=== PATIENT | male | born 1955 | race Caucasian/White ===

== ENCOUNTER 2021-03-04 12:33 | Emergency (ER) | payer MEDICARE, MEDICAID, SELFPAY ==
[2021-03-04 12:49] VITALS: BP 174/83; PULSE 71; RESP 15; TEMP 36.4; O2SAT 100; BMI 22.9
--- NOTE | 2021-03-04 12:52 | DI.RAD.S_ITS ---
PROCEDURE: XR FOOT RT MIN 3V INDICATIONS: foot pain after he heard a snap TECHNIQUE: 3 views of the foot were acquired. COMPARISON: None. FINDINGS: Bones: Focal lucency is seen involving the lateral cortex of the 5th metatarsal. This lucency demonstrates potentially corticated margins. Age-appropriate bony degenerative changes are seen. Incidental note is made of an accessory ossicle, an os trigonum. Soft tissues: No tibiotalar joint effusion. Achilles tendon appears normal. IMPRESSION: Likely minimally displaced fracture of the proximal 5th metatarsal. However, differential diagnosis includes a nutrient foramen. Please correlate with focal tenderness at this site. If it would be helpful for clinical management decision making in this patient with this given history, please consider a dedicated foot CT for further evaluation. Dictated by: Dario Bundy M.D. on 03/04/2021 at 12:06 Approved by: Dario Bundy M.D. on 03/04/2021 at 12:08
--- NOTE | 2021-03-04 15:44 | ED.LOWEXIN ---
HPI - Extremity Injury (Lower) General Chief Complaint: Extremity Injury, Lower Stated Complaint: Left foot injury x5 days Time Seen by Provider: 03/04/21 15:38 Source: patient Mode of arrival: Ambulatory History of Present Illness HPI Narrative: Patient is 65-year-old healthy male who presents with right foot and knee pain. He says that his knee has been unstable for some time he thinks he injured at all his foot last week compensating for his knee. However try 4 days ago he felt a snap it brought him to his knees he had intense severe pain in his right foot. He has been unable to weight bear ever since he even bottom cell some crutches at [employer]. He knee also remains a concern Related Data Previous Rx's Medication Instructions Recorded hydrocodone 5 mg-acetaminophen 325 1 tab PO Q6H PRN #10 tab 03/04/21 mg tablet Allergies Allergy/AdvReac Type Severity Reaction Status Date / Time Penicillins Allergy Verified 03/04/21 12:49 Review of Systems Review of Systems Narrative: GENERAL: Denies chills,fever HEENT: Denies throat pain RESPIRATORY: Denies dyspnea, cough, wheezing CARDIOVASCULAR: Denies chest pain, palpitations GASTROINTESTINAL: Denies nausea, vomiting MUSCULOSKELETAL: See HPI SKIN: No rash, no laceration, no pruritus NEUROLOGIC: Denies weakness, dizziness, headache, numbness 8 point review of systems is negative except for those stated above and HPI Patient History Social History Smoking Status: Unknown if ever smoked Smoking Status: Unknown if ever smoked alcohol intake frequency: holidays/special occasions only Substance Use Type: does not use Exam Initial Vital Signs Initial Vital Signs: Vital Signs Temperature 97.5 F L 03/04/21 12:49 Pulse Rate 71 03/04/21 12:49 Respiratory Rate 15 03/04/21 12:49 Blood Pressure 174/83 H 03/04/21 12:49 Pulse Oximetry 100 03/04/21 12:49 GENERAL: Well-appearing, well-nourished and in no acute distress. CARDIOVASCULAR: peripheral pulses in tact, cap refill <2 sec RESPIRATORY: No respiratory distress, speaks in full sentences without difficulty EXTREMITIES: Normal range of motion, no clubbing or edema. Neurovascularly intact Right lower extremity: Knee is stable no swelling is tender foot is metatarsal contusion a pulse intact NEUROLOGICAL: Cranial nerves II through XII grossly intact. Normal gait and speech. SKIN: Warm, dry, no petechiae, no rashes or lesions. Procedures Orthopedic Splinting/Casting Injury #1: Lower Extremity Immobilizer: posterior splint and knee immobilizer Other Orthopedic Equipment: crutches Post splinting neuro exam: intact Post splinting vascular exam: intact Placed by: Nursing Course Orders Ordered: ED Orders 03/04/21 12:52 XR foot RT min 3V Stat Vital Signs Vital signs: Vital Signs - 8 hr 03/04/21 12:49 03/04/21 16:08 Temperature 97.5 F L Pulse Rate 71 65 Respiratory Rate 15 14 Blood Pressure 174/83 H 146/80 H Pulse Oximetry 100 100 MDM - Extremity Injury (Lower) Imaging Data Extremity x-ray #1: Radiologist's Impression: PROCEDURE:? XR FOOT RT MIN 3V ? INDICATIONS:? foot pain after he heard a snap ? TECHNIQUE:? 3 views of the foot were acquired.? ? COMPARISON:? None. ? FINDINGS:? ? Bones:? Focal lucency is seen involving the lateral cortex of the 5th metatarsal.? This lucency demonstrates potentially corticated margins. ? Age-appropriate bony degenerative changes are seen. Incidental note is made of an accessory ossicle, an os trigonum.? ? ? Soft tissues:? No tibiotalar joint effusion.? Achilles tendon appears normal.? ? ? IMPRESSION:? Likely minimally displaced fracture of the proximal 5th metatarsal.? However, differential diagnosis includes a nutrient foramen.? Please correlate with focal tenderness at this site. ? If it would be helpful for clinical management decision making in this patient with this given history, please consider a dedicated foot CT for further evaluation. ? ? Dictated by: Dario Bundy M.D. on 03/04/2021 at 12:06 ? ? Approved by: Dario Bundy M.D. on 03/04/2021 at 12:08 ? [facility] Narrative Medical decision making narrative: Patient is found to 5th metatarsal fracture. He is placed in a posterior slab not weight-bearing. His knee is still quite bothersome to him but that is chronic in on going he is given any immobilizer and instructions to follow-up with orthopedics. Discharge Plan Departure Patient Disposition: Home Clinical Impression: Fracture of 5th metatarsal, Knee sprain Instructions: DI for Foot Fracture, DI for Knee Sprain Activity Restrictions/Additional Instructions: *You have been diagnosed with right foot fracture and knee sprain *What to do: Use crutches, no weight-bearing. Please follow-up with orthopedics. Elevate, ice 20-30 minutes at a time *Continue to take medications as directed Simpson 1 tablet every 6 hours if needed for severe pain *Follow up with your primary care provider in 2-3 days or call [phone] *Return to ER if you should have increased pain weakness numbness tinglingor any new, worsening or concerning symptoms CONTROLLED SUBSTANCE DISCHARGE (Narcotoic/benzodiazepine/Flexeril/Phenergan) 1. You have been prescribed narcotic medications, it does have acetaminophen/Tylenol/paracetamol in it, DO NOT TAKE MORE THAN 4,00mg in 24 hours of Tylenol. TRAMADOL DOES NOT CONTAIN TYLENOL 2. Please understand that we cannot provide further refills of narcotics, benzodiazepines or controlled substances through the ED and her pain management will need to be through your provider. 3. While on these medications you cannot drive or operate heavy machinery. 4. You cannot sign legal documents or perform any duties such as this. 5. As long as you're taking opiate pain medications he should also be taking a stool softener such as Colace, Dulcolax, MiraLAX or prune juice, to help avoid constipation. Prescriptions: New hydrocodone-acetaminophen 5-325 mg tablet 1 tab PO Q6H PRN (Reason: pain) Qty: 10 0RF Referrals: [facility] [Provider Group] Jorge Hunt MD [Primary Care Provider] - Yaquelin Lee MD [Physician] -
[2021-03-04 16:08] VITALS: BP 146/80; PULSE 65; RESP 14; O2SAT 100
== END 2021-03-04 16:22 | disposition home or self-care (01) ==
PROVIDERS: Emergency Provider Emergency Medicine; PCP Family Medicine
DX: S92.351A Displaced fracture of fifth metatarsal bone, right foot, initial encounter for closed fracture (principal); S83.91XA Sprain of unspecified site of right knee, initial encounter; X58.XXXA Exposure to other specified factors, initial encounter
CPT/HCPCS: 73630; 99283

== ENCOUNTER → 2021-04-07 10:47 | Outpatient (CLI) | payer MEDICARE, MEDICAID, SELFPAY ==
--- NOTE | 2021-04-07 | DI.MRI.S_ITS ---
PROCEDURE: MR FOOT RT WO CON INDICATIONS: NONDISPLACED FRACTURE OF 5TH METATARSAL BONE TECHNIQUE: Noncontrast sagittal T1 spin echo and T2 fast spin echo with fat saturation, long-axis T1 spin echo and T2 fast spin echo with fat saturation, short-axis T1 spin echo and T2 fast spin echo with fat saturation through the forefoot. COMPARISON: [facility] [place], CR, XR FOOT 3 VIEWS WEIGHT BEARING RIGHT, 03/26/2021, 10:38. FINDINGS: Image quality: Excellent. Bones and joints: Minimal displaced fracture of the proximal 5th metatarsal with edema about the fracture site. The sesamoid bones appear in expected positions, without internal edema. Mild 1st metatarsophalangeal joint degeneration. No intraosseous lesions. Soft tissues: The visualized plantar foot muscles demonstrate normal signal and bulk. Visualized flexor and extensor tendons appear intact, without tenosynovitis. The distal insertions of the peroneal longus and brevis tendons appear intact. The principal Lisfranc ligament appears intact. Dorsal T2 hyperintense signal is seen, compatible with edema. Sagittal images demonstrate no evidence for plantar plate tears. IMPRESSION: 1. Minimal displaced fracture of the proximal 5th metatarsal with edema about the fracture site. 2. Dorsal soft tissue swelling. Dictated by: Reji Reyez M.D. on 04/07/2021 at 12:58 Approved by: Reji Reyez M.D. on 04/07/2021 at 13:03
== END ==
PROVIDERS: PCP Family Medicine; Referring Provider Orthopaedic Surgery Foot and Ankle Surgery; Visit Provider Orthopaedic Surgery Foot and Ankle Surgery
DX: S92.354A Nondisplaced fracture of fifth metatarsal bone, right foot, initial encounter for closed fracture (principal); M79.89 Other specified soft tissue disorders; X58.XXXA Exposure to other specified factors, initial encounter
CPT/HCPCS: 73718

== ENCOUNTER → 2021-07-09 11:01 | Outpatient (CLI) | payer MEDICARE, MEDICAID, SELFPAY ==
[2021-07-09 18:40] LABS: Alanine Aminotransferase 15 IU/L (<50); Albumin 4.7 g/dL (3.5-5.0); Albumin Globulin Ratio 1.5 (1.0-2.8); Alkaline Phosphatase 88 U/L (38-126); Aspartate Aminotransferase 28 IU/L (17-59); BUN Creatinine Ratio 21.8 (6-22); Bilirubin Total 0.5 mg/dL (0.2-1.3); Blood Urea Nitrogen 19 mg/dL (9-20); Calcium 9.2 mg/dL (8.4-10.2); Carbon Dioxide 31 mmol/L (22-32); Chloride 103 mmol/L (98-107); Estimated Glomerular Filt Rate > 60 mL/min (>60); Globulin 3.1 g/dL (1.7-4.1); Glucose 101 mg/dL (80-110); HEMOLYSIS < 15 (0-50); Potassium 4.4 mmol/L (3.4-5.1); Sodium 139 mmol/L (137-145); Total Protein 7.8 g/dL (6.3-8.2)
[2021-07-09 18:50] LABS: Add Manual Diff / Slide Review NO; Basophils Absolute Auto 100 /uL (0-100); Basophils Percent Auto 1.1 % (0-2); Eosinophils Absolute Auto 200 /uL (0-450); Eosinophils Percent Auto 3.1 % (2-4); Hematocrit 45.2 % (41-53); Hemoglobin 15.2 g/dL (13.5-17.5); Lymphocytes Absolute Auto 1100 /uL (1100-4500); Lymphocytes Percent Auto 22.1 % (25-40); Mean Corpuscular HGB Conc 33.6 % (30-36); Mean Corpuscular Hemoglobin 30.1 PG (26-34); Mean Corpuscular Volume 89.4 fL (80-100); Monocytes Absolute Auto 700 /uL (0-900); Monocytes Percent Auto 13.8 % (3-14); Neutrophils Absolute Auto 3100 /uL (1500-7000); Neutrophils Percent Auto 59.9 % (50-75); Platelet Count 242 X10^3/uL (150-400); Red Blood Cell Count 5.06 X10^6/uL (4.5-5.9); Red Cell Distribution Width 13.9 % (11.6-14.8); White Blood Cell Count 5.1 X10^3/uL (4.5-11.0)
[2021-07-09 19:10] LABS: Prostate Specific Antigen 1.38 ng/mL (0.10-4.00)
== END ==
PROVIDERS: PCP Family Medicine; Visit Provider Physician Assistant
DX: Z12.5 Encounter for screening for malignant neoplasm of prostate (principal); I10 Essential (primary) hypertension; S39.012A Strain of muscle, fascia and tendon of lower back, initial encounter
CPT/HCPCS: 80053; 84153; 85025

== ENCOUNTER → 2021-07-11 09:43 | Outpatient (CLI) | payer MEDICARE, MEDICAID, SELFPAY ==
[2021-07-11 18:33] LABS: Cholesterol 259 mg/dL (140-199); HDL Cholesterol 55 mg/dL (40-60); LDL Cholesterol Calculated 182 mg/dL (<100); Triglycerides 108 mg/dL (35-150)
== END ==
PROVIDERS: PCP Physician Assistant; Visit Provider Physician Assistant
DX: R03.0 Elevated blood-pressure reading, without diagnosis of hypertension (principal); E78.5 Hyperlipidemia, unspecified
CPT/HCPCS: 80061

== ENCOUNTER → 2022-03-30 11:50 | Outpatient (CLI) | payer MEDICARE, MEDICAID, SELFPAY ==
--- NOTE | 2022-03-30 | DI.RAD.S_ITS ---
PROCEDURE: [place] WRIST INJECTION MR/CT RT INDICATIONS: RIGHT WRIST STRAIN COMPARISON: None. TECHNIQUE: After informed consent had been obtained, the wrist was examined fluoroscopically, and a site chosen for injection of the radiocarpal compartment from a dorsal approach. Skin was prepped and draped in a sterile fashion and 1% lidocaine infiltrated from the skin down to the articular surface. A hypodermic needle was then introduced into the articular space and a modest amount of contrast medium was instilled confirming intra-articular needle tip placement. This was followed by approximately 4 mL of a dilute gadolinium solution. Needle was removed and dressing was applied. The patient experienced no complications throughout the procedure and left the fluoroscopic suite in no apparent distress. FINDINGS: A single fluoroscopic spot image demonstrates intra-articular location to injected iodinated contrast. IMPRESSION: Fluoroscopic-guided administration of dilute Gadolinium solution for wrist MR arthrogram. Dictated by: Oscar Elizabeth M.D. on 03/30/2022 at 14:18 Approved by: Oscar Elizabeth M.D. on 03/30/2022 at 14:19
--- NOTE | 2022-03-30 13:52 | DI.MRI.S_ITS ---
PROCEDURE: MR WRIST RT W CON INDICATIONS: RIGHT WRIST STRAIN TECHNIQUE: After the administration of 3-4 mL of dilute intra-articular Gadolinium contrast into the radiocarpal compartment, coronal T1 spin echo with fat saturation and T2 fast spin echo with fat saturation, axial T1 spin echo and T2 fast spin echo with fat saturation, sagittal T1 spin echo with and without fat saturation through the wrist. COMPARISON: [facility], CR, XR WRIST 3+ VIEWS RIGHT, 03/17/2022, 11:58. [facility], , [place] WRIST INJECTION MR/CT RT, 03/30/2022, 14:12. FINDINGS: Image quality: Images are mildly degraded by patient motion despite repeat sequences being acquired. Diagnostic information is obtained. Bones and cartilage: Cystic changes and mild edema are seen within the distal ulna and the adjacent portion of the triquetrum. There is joint space narrowing at the radiolunate articulation with subchondral cystic changes in the radius. Degenerative spurring is noted at the 1st carpometacarpal joint. The carpal bones are normally aligned. No evidence for avascular necrosis. Carpal ligaments: The scapholunate and lunotriquetral ligaments appear intact, without gadolinium extravasation into the mid-carpal compartment. On sagittal images, the pisohamate ligament appears intact. Triangular fibrocartilage complex: There is extravasation of radiocarpal contrast material into the distal radioulnar joint. The ulnar attachments of the triangular fibrocartilage are poorly visualized with heterogeneously hyperintense T1-weighted and T2-weighted signal in this region that is suspicious for full-thickness tearing. Tendons and soft tissues: The carpal tunnel structures appear normal, including the median nerve. The ulnar nerve appears normal within Guyon's canal. There is at least high-grade partial intrasubstance tearing of the extensor carpi ulnaris tendon at the level of the ulnar styloid. No tendon subluxation. A few attenuated tendon fibers may remain in continuity. The remaining extensor tendon compartments demonstrate normal morphology, without pathologic tendon sheath fluid. Lobular ganglion cyst at the volar aspect of the radiocarpal joint measures 10 x 2 x 3 mm and is most likely communicating. A ganglion cyst is seen along the volar aspect of the 3rd carpometacarpal joint measuring 4 mm in maximum dimension. Additional 3 mm ganglion cyst is seen dorsal to the 2nd carpometacarpal joint. IMPRESSION: 1. At least high-grade partial tearing of the extensor carpi ulnaris tendon at the level of the ulnar styloid. 2. Full-thickness tearing of the ulnar attachments of the triangular fibrocartilage with extravasation of radiocarpal contrast material into the distal radioulnar joint. 3. Cystic changes and mild edema within the ulnar styloid and the adjacent triquetrum may be the sequela of prior impaction injury versus chronic cystic changes and/or reactive edema. 4. Degenerative changes in the wrist are most prominent at the radiocarpal and 1st carpometacarpal joints. 5. A few small ganglion cysts are seen around the wrist. Approved by: Oscar Goins M.D. on 03/30/2022 at 16:07
== END ==
PROVIDERS: PCP Physician Assistant; Referring Provider Orthopaedic Surgery; Visit Provider Orthopaedic Surgery
DX: S63.591A Other specified sprain of right wrist, initial encounter (principal); S56.511A Strain of other extensor muscle, fascia and tendon at forearm level, right arm, initial encounter; M67.431 Ganglion, right wrist; X50.0XXA Overexertion from strenuous movement or load, initial encounter
CPT/HCPCS: 20605; 73222; 77002

== ENCOUNTER → 2023-05-20 13:36 | Outpatient (CLI) | payer MEDICARE, SELFPAY ==
[2023-05-20 19:43] LABS: Add Manual Diff / Slide Review NO; Basophils Absolute Auto 100 /uL (0-100); Basophils Percent Auto 1.2 % (0-2); Eosinophils Absolute Auto 200 /uL (0-450); Eosinophils Percent Auto 4.3 % (2-4); Hematocrit 40.3 % (41-53); Hemoglobin 13.9 g/dL (13.5-17.5); Lymphocytes Absolute Auto 1000 /uL (1100-4500); Lymphocytes Percent Auto 22.6 % (25-40); Mean Corpuscular HGB Conc 34.5 % (30-36); Mean Corpuscular Hemoglobin 30.6 PG (26-34); Mean Corpuscular Volume 88.6 fL (80-100); Monocytes Absolute Auto 500 /uL (0-900); Monocytes Percent Auto 11.9 % (3-14); Neutrophils Absolute Auto 2700 /uL (1500-7000); Platelet Count 197 X10^3/uL (150-400); Red Blood Cell Count 4.55 X10^6/uL (4.5-5.9); Red Cell Distribution Width 13.1 % (11.6-14.8); White Blood Cell Count 4.5 X10^3/uL (4.5-11.0)
[2023-05-20 19:53] LABS: Erythrocyte Sedimentation Rate 5 MM/HR (0-15)
[2023-05-20 20:20] LABS: Alanine Aminotransferase 16 IU/L (<50); Albumin 4.2 g/dL (3.5-5.0); Albumin Globulin Ratio 1.3 (1.0-2.8); Alkaline Phosphatase 80 U/L (38-126); Aspartate Aminotransferase 49 IU/L (17-59); BUN Creatinine Ratio 21.2 (6-22); Bilirubin Total 0.7 mg/dL (0.2-1.3); Blood Urea Nitrogen 18 mg/dL (9-20); C-Reactive Protein Quant < 0.5 mg/dL (<1.0); Calcium 9.1 mg/dL (8.4-10.2); Carbon Dioxide 27 mmol/L (22-32); Chloride 106 mmol/L (98-107); Estimated Glomerular Filt Rate > 60 mL/min (>60); Globulin 3.3 g/dL (1.7-4.1); Glucose 121 mg/dL (80-110); HEMOLYSIS < 15 (0-50); Potassium 3.5 mmol/L (3.4-5.1); Sodium 139 mmol/L (137-145); Total Protein 7.5 g/dL (6.3-8.2)
[2023-05-20 20:52] LABS: Ferritin 115 ng/mL (18-464)
== END ==
PROVIDERS: PCP Family Medicine; Visit Provider Family Medicine
DX: R10.9 Unspecified abdominal pain (principal); R19.5 Other fecal abnormalities; R63.4 Abnormal weight loss; R03.0 Elevated blood-pressure reading, without diagnosis of hypertension; Z13.0 Encounter for screening for diseases of the blood and blood-forming organs and certain disorders involving the immune mechanism
CPT/HCPCS: 80053; 82728; 85025; 85651; 86140

== ENCOUNTER → 2023-05-26 14:25 | Outpatient (CLI) | payer MEDICARE, SELFPAY ==
--- NOTE | 2023-05-26 14:25 | DI.CT.S_ITS ---
PROCEDURE: CT ABDOMEN PELVIS W CON INDICATIONS: RLQ pain, wt loss and decrease in stool caliber, TECHNIQUE: After the administration of intravenous contrast, axial sections acquired from the lung bases to the pubic symphysis. Coronal and sagittal reformats were performed. For radiation dose reduction, the following was used: automated exposure control, adjustment of mA and/or kV according to patient size. COMPARISON: None. FINDINGS: Image quality: Diagnostic. Lower Chest: No significant findings. ABDOMEN: Liver: No solid mass. Gallbladder: No radiopaque gallstones or wall thickening. Biliary ducts: No biliary dilation. Pancreas: No ductal dilation. Spleen: Size is within normal limits. Adrenal Glands: No adrenal nodules. Kidneys and Ureters: No hydronephrosis. No solid mass. No complex renal cystic lesion which requires follow up. Stomach and Bowel: Normal colonic caliber, without significant wall thickening. Normal appendix. There is a large amount of fecal material seen throughout the colon. There is also fecalization of the distal small bowel without wall thickening or evidence for small bowel obstruction. No evidence for abnormal wall thickening of the small bowel. No acute inflammatory changes. Normal appendix. Peritoneum: No abnormal intraperitoneal fluid. No free air. Ventral Wall: No significant ventral hernia. Abdominal Nodes: No retroperitoneal or mesenteric adenopathy by size criteria. Vessels: Aorta and inferior vena cava are normal in size. Moderate atherosclerotic vascular calcifications. PELVIS: Pelvic Organs: Unremarkable. Bladder: No bladder wall thickening, accounting for underdistention. Pelvic Nodes: No enlarged lymph nodes. Miscellaneous: No inguinal hernias are seen. Bones: No aggressive osseous abnormality. IMPRESSION: 1. CT abdomen and pelvis without acute abnormalities. 2. Large amount of fecal material seen throughout the colon as well as fecalization of the distal small bowel. Findings are suggestive of delayed transit/fecal stasis. No evidence for small bowel obstruction. No acute inflammatory changes. No evidence for suspicious mass or adenopathy. If not already accomplished, further evaluation with screening colonoscopy can be considered. 3. Moderate atherosclerotic vascular calcifications. 4. Normal appendix. Dictated by: Baldemar Ribera M.D. on 05/26/2023 at 15:49 Approved by: Baldemar Ribera M.D. on 05/26/2023 at 16:03
== END ==
PROVIDERS: PCP Family Medicine; Referring Provider Family Medicine; Visit Provider Family Medicine
DX: I70.0 Atherosclerosis of aorta; R19.5 Other fecal abnormalities; R63.4 Abnormal weight loss; R10.9 Unspecified abdominal pain; Z80.0 Family history of malignant neoplasm of digestive organs
CPT/HCPCS: 74177; Q9967

== ENCOUNTER → 2023-07-21 12:48 | Outpatient (CLI) | payer MEDICARE, SELFPAY ==
[2023-07-21 14:01] LABS: Add Manual Diff / Slide Review NO; Basophils Absolute Auto 100 /uL (0-100); Basophils Percent Auto 1.2 % (0-2); Eosinophils Absolute Auto 100 /uL (0-450); Eosinophils Percent Auto 1.9 % (2-4); Hematocrit 40.6 % (41-53); Hemoglobin 13.9 g/dL (13.5-17.5); Lymphocytes Absolute Auto 800 /uL (1100-4500); Lymphocytes Percent Auto 19.8 % (25-40); Mean Corpuscular HGB Conc 34.3 % (30-36); Mean Corpuscular Hemoglobin 30.6 PG (26-34); Mean Corpuscular Volume 89.1 fL (80-100); Monocytes Absolute Auto 300 /uL (0-900); Monocytes Percent Auto 8.3 % (3-14); Neutrophils Absolute Auto 2900 /uL (1500-7000); Neutrophils Percent Auto 68.8 % (50-75); Platelet Count 183 X10^3/uL (150-400); Red Blood Cell Count 4.55 X10^6/uL (4.5-5.9); Red Cell Distribution Width 13.1 % (11.6-14.8); White Blood Cell Count 4.2 X10^3/uL (4.5-11.0)
[2023-07-21 14:22] LABS: Alanine Aminotransferase 23 IU/L (<50); Albumin 4.4 g/dL (3.5-5.0); Albumin Globulin Ratio 1.6 (1.0-2.8); Alkaline Phosphatase 63 U/L (38-126); Aspartate Aminotransferase 38 IU/L (17-59); Bilirubin Total 0.5 mg/dL (0.2-1.3); Blood Urea Nitrogen 17 mg/dL (9-20); Calcium 9.2 mg/dL (8.4-10.2); Carbon Dioxide 30 mmol/L (22-32); Chloride 104 mmol/L (98-107); Estimated Glomerular Filt Rate > 60 mL/min (>60); Globulin 2.7 g/dL (1.7-4.1); Glucose 150 mg/dL (80-110); HEMOLYSIS < 15 (0-50); Potassium 3.9 mmol/L (3.4-5.1); Sodium 140 mmol/L (137-145); Total Protein 7.1 g/dL (6.3-8.2)
== END ==
PROVIDERS: Internal Medicine Gastroenterology; PCP Family Medicine; Referring Provider Family Medicine; Visit Provider Family Medicine
DX: R19.5 Other fecal abnormalities (principal); Z80.0 Family history of malignant neoplasm of digestive organs; R10.31 Right lower quadrant pain
CPT/HCPCS: 36415; 80053; 85025

== ENCOUNTER → 2023-07-21 14:19 | Outpatient (CLI) | payer MEDICARE, SELFPAY ==
--- NOTE | 2023-07-21 14:20 | DI.CT.S_ITS ---
PROCEDURE: CT CHEST ABD PEL W CON INDICATIONS: SUSPECTED COLON CANCER TECHNIQUE: After the administration of intravenous contrast, 5 mm thick sections acquired from the lung apices to the symphysis. 5 mm coronal and sagittal reformats were performed, with additional 7 mm MIP reformats through the lungs. For radiation dose reduction, the following was used: automated exposure control, adjustment of mA and/or kV according to patient size. COMPARISON: [facility], CT, CT ABDOMEN PELVIS W CON, 05/26/2023, 14:33. FINDINGS: Image quality: There is streak artifact seen through the level of the shoulders. CHEST: Lower Neck: No enlarged lymph nodes. Thyroid: No thyroid nodules which require sonographic follow up, per consensus guidelines. Axillae: No enlarged lymph nodes. Chest Wall: Unremarkable. Lungs and Pleura: Minimal nodules can be seen within the right upper lobe inferiorly and posteriorly, as on series 5, image 141, measuring up to 6 mm. Heart: Heart size is normal. No pericardial effusion. Thoracic Vessels: The aorta and pulmonary arteries demonstrate normal size. Mediastinum and Karen: No enlarged lymph nodes. Esophagus: No wall thickening. No hiatal hernia. ABDOMEN: Liver: No solid mass. No findings of liver metastases are identified. Gallbladder: No radiopaque gallstones or wall thickening. Biliary ducts: No biliary dilation. Pancreas: No ductal dilation. Spleen: Size is within normal limits. Adrenal Glands: No adrenal nodules. Kidneys and Ureters: No hydronephrosis. No solid mass. No complex renal cystic lesion which requires follow up. Stomach and Bowel: History of a 6 cm mass within the ascending colon is given. There is focal wall thickening seen within the ascending colon, where there is a biopsy marker clip seen. The colon is otherwise unremarkable by CT. The administered oral contrast is seen partially through the small bowel. No dilated loops of small bowel are seen. The stomach demonstrates no significant abnormality. Peritoneum: No abnormal intraperitoneal fluid. No free air. Ventral Wall: No significant ventral hernia. Abdominal Nodes: No retroperitoneal or mesenteric adenopathy by size criteria. Vessels: Aorta and inferior vena cava are normal in size. Atherosclerotic calcification is noted. PELVIS: Pelvic Organs: Unremarkable. Bladder: No bladder wall thickening, accounting for underdistention. Pelvic Nodes: No enlarged lymph nodes. Miscellaneous: No inguinal hernias are seen. Bones: No aggressive osseous abnormality. Focal L5-S1 degenerative change is seen. Milder degenerative changes are seen elsewhere. IMPRESSION: Partial visualization of the known mass within the ascending colon. No definite findings of metastatic disease are identified. Within the right upper lobe, focal nodular opacities are seen. These have the appearance of focal infection or inflammatory change. Metastatic disease in this patient with this given history is possible, yet considered to be less likely, based upon the imaging appearance. Additional findings: Focal L5-S1 degenerative change Dictated by: Dario Bundy M.D. on 07/21/2023 at 16:16 Approved by: Dario Bundy M.D. on 07/21/2023 at 16:22
== END ==
LOC: CT 14:19
PROVIDERS: PCP Family Medicine; Referring Provider Internal Medicine Gastroenterology; Visit Provider Internal Medicine Gastroenterology
DX: K63.9 Disease of intestine, unspecified (principal); K62.1 Rectal polyp; R19.5 Other fecal abnormalities; R10.31 Right lower quadrant pain; Z80.0 Family history of malignant neoplasm of digestive organs
CPT/HCPCS: 36415; 71260; 74177; 80053; 85025; Q9967

== ENCOUNTER → 2023-12-20 13:56 | Outpatient (CLI) | payer MEDICARE, SELFPAY ==
[2023-12-20 19:34] LABS: Add Manual Diff / Slide Review NO; Basophils Absolute Auto 100 /uL (0-100); Basophils Percent Auto 1.3 % (0-2); Eosinophils Absolute Auto 300 /uL (0-450); Eosinophils Percent Auto 6.5 % (2-4); Hematocrit 40.6 % (41-53); Hemoglobin 13.7 g/dL (13.5-17.5); Lymphocytes Absolute Auto 1100 /uL (1100-4500); Lymphocytes Percent Auto 20.9 % (25-40); Mean Corpuscular HGB Conc 33.8 % (30-36); Mean Corpuscular Hemoglobin 30.3 PG (26-34); Mean Corpuscular Volume 89.6 fL (80-100); Monocytes Absolute Auto 600 /uL (0-900); Monocytes Percent Auto 11.7 % (3-14); Neutrophils Absolute Auto 3100 /uL (1500-7000); Neutrophils Percent Auto 59.6 % (50-75); Platelet Count 219 X10^3/uL (150-400); Red Blood Cell Count 4.53 X10^6/uL (4.5-5.9); Red Cell Distribution Width 13.4 % (11.6-14.8); White Blood Cell Count 5.2 X10^3/uL (4.5-11.0)
[2023-12-20 19:55] LABS: Alanine Aminotransferase 30 IU/L (<50); Albumin 4.1 g/dL (3.5-5.0); Albumin Globulin Ratio 1.7 (1.0-2.8); Alkaline Phosphatase 89 U/L (38-126); Aspartate Aminotransferase 52 IU/L (17-59); BUN Creatinine Ratio 22.2 (6-22); Bilirubin Total 0.4 mg/dL (0.2-1.3); Blood Urea Nitrogen 20 mg/dL (9-20); Calcium 9.1 mg/dL (8.4-10.2); Carbon Dioxide 28 mmol/L (22-32); Chloride 105 mmol/L (98-107); Estimated Glomerular Filt Rate > 60 mL/min (>60); Globulin 2.4 g/dL (1.7-4.1); Glucose 77 mg/dL (80-110); HEMOLYSIS < 15 (0-50); Potassium 3.9 mmol/L (3.4-5.1); Sodium 139 mmol/L (137-145); Total Protein 6.5 g/dL (6.3-8.2)
[2023-12-20 20:24] LABS: Carcinoembryonic Antigen 0.8 ng/mL (0.1-3.0)
== END ==
PROVIDERS: PCP Family Medicine; Visit Provider Internal Medicine
DX: C18.9 Malignant neoplasm of colon, unspecified (principal)
CPT/HCPCS: 80053; 82378; 85025